=== PATIENT | female | born 1950 | race Caucasian/White ===

== ENCOUNTER 2018-07-24 09:31 | Day surgery (SDC) | payer MEDICARE, OTHER ==
[2018-07-24 10:08] VITALS: RESP 16; TEMP 98.1
[2018-07-24 11:55] VITALS: BP 141/72; PULSE 90
--- NOTE | 2018-07-24 13:44 | US ---
EXAMINATION TYPE: US FNA thyroid first lesion DATE OF EXAM: 07/24/2018 COMPARISON: EXAMINATION TYPE: US FNA thyroid first lesion DATE OF EXAM: 07/24/2018 COMPARISON: NONE HISTORY: Thyroid nodule, E04.1 Maximal barrier technique was utilized. Ultrasound using sterile technique. The skin overlying the mi d pole right thyroid nodule was localized with ultrasound and the overlying skin prepped and draped. Lidocaine used for local anesthesia. 5 passes with a 25-gauge needle were made into the nodule under ultrasound guidance. Aspirate specimen submitted to cytology. Using similar technique 5 passes were m jony into the upper pole right thyroid nodule, the left upper pole thyroid nodule, and the left lower pole thyroid nodule. Following the procedure hemostasis achieved. No immediate complication IMPRESSION: Status post ultrasound-guided fine-needle aspiration of 4 thyroid nodules, pathology pend ing. HISTORY: Thyroid nodule, E04.1 Maximal barrier technique was utilized. Ultrasound using sterile technique. The skin overlying the no dule was localized with ultrasound and the overlying skin prepped and draped. Lidocaine used for loca l anesthesia. 5 passes with a 25-gauge needle were made into the nodule under ultrasound guidance. As pirate specimen submitted to cytology. Following the procedure hemostasis achieved. No immediate comp lication IMPRESSION: Status post ultrasound-guided fine-needle aspiration of thyroid nodule, pathology pending .
== END 2018-07-24 11:42 | disposition home or self-care (01) ==
LOC: RADPROMAIN 09:31
PROVIDERS: ATTEND Family Medicine
DX: E04.1 Nontoxic single thyroid nodule (principal)
CPT/HCPCS: 10005; 10006; 36415; 88173; 88305